=== PATIENT | female | born 1980 | race Caucasian/White ===

== ENCOUNTER 2024-02-14 00:05 | Emergency (ER) | payer OTHER ==
[~2024-02-14] VITALS: Ht 157.5 cm; Wt 84.0 kg
[~2024-02-14 00:05] MED LIST: NO HOME MEDS
[2024-02-14 00:17] VITALS: BP 127/102; PULSE 78
[2024-02-14 01:00] VITALS: RESP 16; TEMP 98.7; O2SAT 96
== END 2024-02-14 01:21 ==
LOC: ER 00:06
DX: S40.022A Contusion of left upper arm, initial encounter (principal); S50.812A Abrasion of left forearm, initial encounter; F12.90 Cannabis use, unspecified, uncomplicated; Z88.5 Allergy status to narcotic agent; Z72.89 Other problems related to lifestyle; V89.2XXA Person injured in unspecified motor-vehicle accident, traffic, initial encounter; Y93.89 Activity, other specified; Y92.89 Other specified places as the place of occurrence of the external cause; Y99.8 Other external cause status
CPT/HCPCS: 71045; 73080; 99284